=== PATIENT | male | born 1975 | race Two or more races ===

== ENCOUNTER 2020-05-07 09:48 | Emergency (ER) | payer MEDICAID, OTHER ==
[~2020-05-07] VITALS: Ht 177.8 cm; Wt 127.0 kg
[2020-05-07 10:02] VITALS: BP 160/80
[2020-05-07] MEDS ORDERED: KETOROLAC TROMETH 60MG/2ML VIAL IM ONE (10:30)
[2020-05-07] MEDS ORDERED: METHOCARBAMOL 500 MG TAB PO ONE (10:30)
== END 2020-05-07 11:12 | disposition home or self-care (01) ==
LOC: ER 09:48 → EDBD 09:48 → ER 11:10
DX: M54.16 Radiculopathy, lumbar region (principal); M51.36 Other intervertebral disc degeneration, lumbar region; E11.9 Type 2 diabetes mellitus without complications; I10 Essential (primary) hypertension
CPT/HCPCS: 72100; 96372; 99283; J1885